=== PATIENT | male | born 1975 | race Caucasian/White ===

== ENCOUNTER → 2019-05-21 | Outpatient (CLI) | payer OTHER ==
[2019-05-21 10:07] LABS: HEMATOCRIT 40.9 % (37.9-51.0); HEMOGLOBIN 14.3 g/dL (13.5-17.0); MEAN CORPUSCULAR HEMOGLOBIN 32.4 pg (27.0-33.4); MEAN CORPUSCULAR VOLUME 93 fl (80-97); PLATELET COUNT 332 10^3/uL (150-450); RED BLOOD COUNT 4.42 10^6/uL (4.35-5.55); RED CELL DISTRIBUTION WIDTH 15.2 % (11.5-14.0); WHITE BLOOD COUNT 7.4 10^3/uL (4.0-10.5)
[2019-05-21 10:34] LABS: ALBUMIN 4.7 g/dL (3.5-5.0); ALKALINE PHOSPHATASE 60 U/L (38-126); ANION GAP 10 (5-19); ASPARTATE AMINO TRANSFERASE 27 U/L (17-59); BILIRUBIN,DIRECT 0.2 mg/dL (0.0-0.4); BILIRUBIN,TOTAL 0.4 mg/dL (0.2-1.3); BLOOD UREA NITROGEN 11 mg/dL (7-20); CALCIUM 9.4 mg/dL (8.4-10.2); CARBON DIOXIDE 28 mmol/L (22-30); CHLORIDE 102 mmol/L (98-107); GLUCOSE 94 mg/dL (75-110); POTASSIUM 4.8 mmol/L (3.6-5.0); TOTAL PROTEIN 7.8 g/dL (6.3-8.2)
[2019-05-21 10:38] LABS: C-REACTIVE PROTEIN < 5.0 mg/L (<10.0)
[2019-05-21 10:51] LABS: ERYTHROCYTE SEDIMENTATION RATE 14 mm/hr (0-15)
== END ==
LOC: OD 09:37
PROVIDERS: ATTEND Orthopaedic Surgery
DX: T84.59XA Infection and inflammatory reaction due to other internal joint prosthesis, initial encounter (principal)
CPT/HCPCS: 36415; 80053; 85027; 85652; 86140

== ENCOUNTER 2019-12-06 19:05 | Emergency (ER) | payer OTHER ==
--- NOTE | 2019-12-06 19:24 | ER Document Report ---
ED Medical Screen (RME) - General Chief Complaint: Knee Pain Stated Complaint: KNEE INJURY Primary Care Provider: MELIA CHAPMAN MD [Primary Care Provider] - Follow up as needed Notes: Patient is a 44-year-old white male with a past medical history of total knee arthroplasty on the right back in 2014 with subsequent effusions that have been tapped and showed infection in the past who presents today with a chief complaint of right knee pain and swelling for the past few days. He states he also has a history of lupus. Had his gallbladder removed in 2018. Denies any fall, blunt injury or trauma. States the pain is exquisite. Denies any redness or increased warmth. Denies fever, nausea vomiting, diarrhea. Admits to some chills. I have treated and performed a rapid initial assessment of this patient. A comprehensive ED assessment and evaluation of the patient, analysis of test results and completion of medical decision making process will be conducted by additional ED providers. PHYSICAL EXAMINATION: GENERAL: Well-appearing, well-nourished and in no acute distress. A&Ox4. Answers questions appropriately. TRAVEL OUTSIDE OF THE [place] IN LAST 30 DAYS: No - Related Data Allergies/Adverse Reactions: venom-honey bee Allergy (Verified 12/06/19 19:15) Past Medical History - Social History Chew tobacco use (# tins/day): No Frequency of alcohol use: Occasional Drug Abuse: None Physical Exam - Vital signs Vitals: Temp Pulse Resp BP Pulse Ox 98.7 F 97 16 118/71 100 12/06/19 19:12 12/06/19 19:12 12/06/19 19:12 12/06/19 19:12 12/06/19 19:12 Course - Vital Signs Vital signs: Temp Pulse Resp BP Pulse Ox 98.7 F 97 16 118/71 100 12/06/19 19:12 12/06/19 19:12 12/06/19 19:12 12/06/19 19:12 12/06/19 19:12 Doctor's Discharge - Discharge Referrals: MELIA CHAPMAN MD [Primary Care Provider] - Follow up as needed
[2019-12-06 20:10] LABS: ABSOLUTE EOSINOPHILS # (AUTO) 0.1 10^3/uL (0.0-0.6); ABSOLUTE LYMPHOCYTES (AUTO) 1.9 10^3/uL (0.5-4.7); ABSOLUTE MONOCYTES (AUTO) 0.6 10^3/uL (0.1-1.4); ABSOLUTE NEUT (AUTO) 3.2 10^3/uL (1.7-8.2); BASOPHILS % (AUTO) 0.8 % (0-2); EOSINOPHILS % (AUTO) 1.8 % (0-6); HEMATOCRIT 33.5 % (37.9-51.0); HEMOGLOBIN 11.6 g/dL (13.5-17.0); LYMPHOCYTES % (AUTO) 32.9 % (13-45); MEAN CORPUSCULAR HEMOGLOBIN 32.7 pg (27.0-33.4); MEAN CORPUSCULAR HGB CONC 34.6 g/dL (32.0-36.0); MEAN CORPUSCULAR VOLUME 95 fl (80-97); MONOCYTES % (AUTO) 10.2 % (3-13); PLATELET COUNT 357 10^3/uL (150-450); RED BLOOD COUNT 3.54 10^6/uL (4.35-5.55); RED CELL DISTRIBUTION WIDTH 14.4 % (11.5-14.0); SEGMENTED NEUTROPHILS % (AUTO) 54.3 % (42-78); TOTAL CELLS COUNTED % (AUTO) 100 %; WHITE BLOOD COUNT 5.9 10^3/uL (4.0-10.5)
[2019-12-06 20:17] LABS: ALBUMIN 4.3 g/dL (3.5-5.0); ALKALINE PHOSPHATASE 121 U/L (38-126); ANION GAP 7 (5-19); ASPARTATE AMINO TRANSFERASE 37 U/L (17-59); BILIRUBIN,TOTAL 0.8 mg/dL (0.2-1.3); BLOOD UREA NITROGEN 15 mg/dL (7-20); CALCIUM 9.2 mg/dL (8.4-10.2); CARBON DIOXIDE 28 mmol/L (22-30); CHLORIDE 104 mmol/L (98-107); GLUCOSE 99 mg/dL (75-110); POTASSIUM 4.3 mmol/L (3.6-5.0); TOTAL PROTEIN 8.3 g/dL (6.3-8.2)
[2019-12-06] MEDS ORDERED: OXYCODONE-ACETAMINOPHEN 5-325 MG TABLET PO ONE (20:17)
[2019-12-06] MEDS ORDERED: PROMETHAZINE HCL 25 MG TABLET PO ONE (20:17)
--- NOTE | 2019-12-06 20:20 | ER Document Report ---
ED Extremity Problem, Lower - General Chief Complaint: Knee Pain Stated Complaint: KNEE INJURY Time Seen by Provider: 12/06/19 20:06 Primary Care Provider: OMID PEACE MD [ACTIVE PROVISIONAL STAFF] - Follow up tomorrow HIRA ROJAS MD [ACTIVE STAFF] - Follow up tomorrow Notes: Patient is a 44-year-old male that comes to the emergency department for chief complaint of sharp pain and significant swelling to the right knee. He states this significantly started yesterday and worsened today. Patient has difficulty walking on the leg or bending the knee. 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 Past medical history also includes hyperlipidemia, hypothyroidism, cholecystectomy. He denies IV drug abuse, he is on diclofenac for his knee. He states he was also recently told he could have lupus. He is not on any medications for this. He denies any recent injury to the knee. TRAVEL OUTSIDE OF THE [place] IN LAST 30 DAYS: No - Related Data Allergies/Adverse Reactions: venom-honey bee Allergy (Verified 12/06/19 19:15) Past Medical History - General Information source: Patient - Social History Smoking Status: Never Smoker Chew tobacco use (# tins/day): No Frequency of alcohol use: Occasional Drug Abuse: None Lives with: Family Family History: Reviewed & Not Pertinent Patient has suicidal ideation: No Patient has homicidal ideation: No Past Surgical History: Reports: Hx Cholecystectomy, Hx Orthopedic Surgery - right knee replacement 2014 - Immunizations Immunizations up to date: Yes Hx Diphtheria, Pertussis, Tetanus Vaccination: Yes Review of Systems - Review of Systems Constitutional: No symptoms reported EENT: No symptoms reported Cardiovascular: No symptoms reported Respiratory: No symptoms reported Gastrointestinal: No symptoms reported Genitourinary: No symptoms reported Male Genitourinary: No symptoms reported Musculoskeletal: See HPI Skin: No symptoms reported Hematologic/Lymphatic: No symptoms reported Neurological/Psychological: No symptoms reported Physical Exam - Vital signs Vitals: Temp Pulse Resp BP Pulse Ox 98.7 F 97 16 118/71 100 12/06/19 19:12 12/06/19 19:12 12/06/19 19:12 12/06/19 19:12 12/06/19 19:12 - Notes Notes: GENERAL: Patient appears to be in pain, holding his right knee with both hands HEAD: Normocephalic, atraumatic. EYES: Pupils equal, round, and reactive to light. Extraocular movements intact. ENT: Oral mucosa moist, tongue midline. Oropharynx unremarkable. Airway patent. NECK: Full range of motion. Supple. Trachea midline. No lymphadenopathy. LUNGS: Clear to auscultation bilaterally, no wheezes, rales, or rhonchi. No respiratory distress. Non-tender chest wall. HEART: Regular rate and rhythm. No murmur ABDOMEN: Soft, non-tender. Non-distended. EXTREMITIES: Patient is able to move the right knee in flexion and extension but with pain. There is significant swelling over the knee itself, there is mild warmth but there is no erythema, there is some generalized tenderness but no severe particular area of tenderness with palpation. Normal thigh, ankle, foot exam, normal distal neurovascular exam. Unremarkable extremities otherwise. BACK: no cervical, thoracic, lumbar midline tenderness. No saddle anesthesia, normal distal neurovascular exam. Moves all extremities in full range of motion. NEUROLOGICAL: Alert and oriented x3. Normal speech. Cranial nerves II through XII grossly intact. Strength 5/5 in all extremities. PSYCH: Normal affect, normal mood. SKIN: Warm, dry, normal turgor. No rashes or lesions noted. Course - Re-evaluation Re-evalutation: Patient does have a very swollen right knee compared to the left, however he is able to straighten and bend this with effort. Swelling is sudden in onset since yesterday without injury. He has no fever, CBC and chemistry unremarkable. CRP and ESR are somewhat elevated however, x-ray obtained and shows hardware but no effusion or acute findings. Discussed with Dr. Guzman, he recommends Orthopedic consultation before attempting possible arthrocentesis because patient has had previous total knee replacement and also an infection. Discussed with Dr. Peace, orthopedics on-call. Discussed presentation, exam, history. He states if desired we can perform arthrocentesis but he does not recommend this particularly, he states at this time he does not feel patient is septic from this and patient will need immediate follow-up tomorrow with orthopedics but no additional recommendation at this time, patient can be discharged for the follow-up. I did discuss this with patient. Initially patient was hoping for arthrocentesis but after I discussed all details, work-up, options patient states that he will call orthopedics referral tomorrow for follow-up with the [facility] instead. He was provided with crutches. He was provided with pain management. Patient was asymptomatic after pain medications here. Vital signs rechecked and unremarkable. Discussed return precautions including inability to move the knee, spiking fever, developing redness, or any other concerning or worsening symptoms. Patient states appreciation and agreement. Stable and well-appearing at time of discharge. - Vital Signs Vital signs: Temp Pulse Resp BP Pulse Ox 98.6 F 78 17 115/80 100 12/06/19 23:53 12/06/19 23:53 12/06/19 23:53 12/06/19 23:53 12/06/19 23:53 - Laboratory Result Diagrams: 12/06/19 19:40 12/06/19 19:40 Laboratory results interpreted by me: 12/06/19 12/06/19 12/06/19 19:40 19:40 19:40 RBC 3.54 L Hgb 11.6 L Hct 33.5 L RDW 14.4 H ESR 71 H C-Reactive Protein Total Protein 8.3 H 12/06/19 19:40 RBC Hgb Hct RDW ESR C-Reactive Protein 18.9 H Total Protein Discharge - Discharge Clinical Impression: Swelling of right knee joint Right knee pain Qualifiers: Chronicity: acute Qualified Code(s): M25.561 - Pain in right knee Condition: Stable Disposition: HOME, SELF-CARE Additional Instructions: There is no effusion (fluid in the joint) seen on the x-ray. However your labs and history are concerning. I spoke with Dr. Peace, orthopedic surgeon rahat. Please see orthopedics tomorrow either with the [facility] or with the referral listed. Use the crutches. Take the pain medication if needed. Return if you worsen including developing a fever, developing redness or spreading redness, inability to move your knee, or any other concerning symptoms. Prescriptions: Oxycodone HCl/Acetaminophen [Percocet 5-325 mg Tablet] 1 - 2 tab PO TID PRN #15 tablet PRN Reason: Ondansetron [Zofran Odt 4 mg Tablet] 1 - 2 tab PO Q4H PRN #15 tab.rapdis PRN Reason: For Nausea/Vomiting Referrals: HIRA ROJAS MD [ACTIVE STAFF] - Follow up tomorrow OMID PEACE MD [ACTIVE PROVISIONAL STAFF] - Follow up tomorrow
--- NOTE | 2019-12-06 20:28 | RADIOLOGY REPORT (SQ) ---
EXAM DESCRIPTION: XR KNEE 4 OR MORE VIEWS COMPLETED DATE/TME: 12/06/2019 19:22 CLINICAL HISTORY: 44 years Male knee pain COMPARISON: None. TECHNIQUE: Right knee, four views FINDINGS: Total knee arthroplasty. No acute fractures or dislocations are identified. No osseous destructive lesions. No joint effusion is noted. IMPRESSION: No acute fracture is identified.
[2019-12-06] MEDS ORDERED: LIDOCAINE 1% INJ (10 MG/ML) 10 ML MDV INJ ONE (22:06)
[2019-12-06 23:55] VITALS: BP 115/80
== END 2019-12-06 23:53 | disposition home or self-care (01) ==
LOC: ER 19:05
DX: R22.41 Localized swelling, mass and lump, right lower limb (principal); M25.561 Pain in right knee; Z96.651 Presence of right artificial knee joint; Z90.49 Acquired absence of other specified parts of digestive tract
CPT/HCPCS: 36415; 80053; 85025; 85652; 86140; 99283

== ENCOUNTER 2019-12-14 09:09 | Inpatient (IN) | payer OTHER ==
[~2019-12-14 09:09] MED LIST: CEFAZOLIN SODIUM 2 GM in DEXTROSE 5%-WATER 100 ML IV PRN
[2019-12-14] MEDS ORDERED: CEFAZOLIN 1 GM/D5W RTU 1 GM/50 ML RTUPB IV ONE (09:13)
[2019-12-14] MEDS ORDERED: CEFAZOLIN INJ 1 GM VIAL ONE (09:13)
[2019-12-14] MEDS ORDERED: PROPOFOL INJ 200 MG/20 ML VIAL IV ONE ×2 (09:26→16:32)
[2019-12-14] MEDS ORDERED: ONDANSETRON HCL INJ/PF 4 MG/2 ML SDV ONE ×2 (09:26→15:46)
[2019-12-14] MEDS ORDERED: FENTANYL CITRATE INJ/PF 100 MCG/2 ML AMPUL ONE (09:26)
[2019-12-14] MEDS ORDERED: LIDOCAINE 2% INJ-PF (20 MG/ML) 10 ML AMPUL ONE (09:26)
[2019-12-14] MEDS ORDERED: MIDAZOLAM 2 MG/2 ML INJ ONE ×2 (09:26→13:28)
[2019-12-14] MEDS ORDERED: EPINEPHRINE INJ/PF 1 MG/1 ML AMPULE ONE (09:28)
[2019-12-14] MEDS ORDERED: THROMBIN (BOVINE) TOPICAL 20000 UNIT VIAL ONE (12:06)
[2019-12-14] MEDS ORDERED: THROMBIN (BOVINE) TOPICAL 5000 UNIT VIAL ONE (12:06)
[2019-12-14] MEDS ORDERED: BUPIVACAINE HCL 0.5%-EPI 1:200000 INJ/PF 30 ML VIAL ONE (12:07)
[2019-12-14] MEDS ORDERED: VANCOMYCIN HCL INJ 1000 MG VIAL ONE ×2 (12:10→12:21)
[2019-12-14] MEDS ORDERED: BACITRACIN INJ 50,000 UNIT VIAL ONE (12:11)
[2019-12-14] MEDS ORDERED: BUPIVACAINE INJ/PF LIPOSOME/PF 266 MG/20 ML SDV ONE (12:11)
[2019-12-14] MEDS ORDERED: DIPHENHYDRAMINE HCL 50 MG/ML VIAL IV PRN ×2 (12:55→14:09)
[2019-12-14] MEDS ORDERED: ONDANSETRON HCL INJ/PF 4 MG/2 ML SDV IV PRN ×2 (12:55→14:09)
[2019-12-14] MEDS ORDERED: FENTANYL CITRATE INJ/PF 100 MCG/2 ML AMPUL IV PRN ×3 (12:55)
[2019-12-14] MEDS ORDERED: PROMETHAZINE HCL INJ 25 MG/1 ML VIAL IV PRN ×2 (12:55)
[2019-12-14] MEDS ORDERED: TRANEXAMIC ACID INJ/PF 1,000 MG/10 ML SDV ONE ×2 (13:50→16:08)
--- NOTE | 2019-12-14 14:08 | Operative Report ---
Operative Report DATE OF SURGERY: 12/14/19 PREOPERATIVE DIAGNOSIS: Right knee periprosthetic infection OPERATION: Resection arthroplasty and implantation of a cement spacer SURGEON: HIRA ROJAS ANESTHESIA: Spinal TISSUE REMOVED OR ALTERED: Swab cultures, tissue cultures, fluid cultures were all sent. Additionally tissue was sent to pathology for permanent analysis ESTIMATED BLOOD LOSS: 75 PROCEDURE: With the patient supine on the operating table the right lower extremities prepped and draped in a sterile fashion. The limb is elevated for exsanguination tourniquet inflated 280 torr. A standard midline median parapatellar approach knee is taken. Upon penetrating the knee capsule there is a large amount of milky appearing fluid that is present. This is aspirated with syringe and sent for culture. Likewise swabs are taken and sent for culture. Viv tissue was taken and sent for culture. First the rotating platform for [place] attune posterior stabilized rotating platform knee is removed piecemeal using a saw. Next a TPS saw was used around the femoral implant minimal bone loss. Lastly the tibial component is removed with minimal bone loss. Any residual cement in the femur the tibia is removed using a combination of osteotomes, curettes, and rongeurs. Lastly the patella component is removed using oscillating saw and the pegs were removed using a combination of a drill and a curette. The wound bed is irrigated with pulse lavage using 3 L of normal saline containing bacitracin followed by 3 L of normal saline. A Jeny [id number] cement spacer attaining gentamicin is placed into the knee and cemented place using polymethylmethacrylate containing vancomycin and tobramycin. The tourniquet is deflated. Hemostasis obtained with electrocautery. The wound is closed in layers using DS followed by ap. A sterile compressive dressing and knee immobilizer applied and the patient is returned to the PACU in satisfactory condition.
[2019-12-14] MEDS ORDERED: MAG HYDROX/AL HYDROX/SIMETH SUSP 30 ML UDCUP PO PRN (14:09)
[2019-12-14] MEDS ORDERED: OXYCODONE HCL IR 5 MG TABLET PO PRN (14:09)
[2019-12-14] MEDS ORDERED: MORPHINE SULFATE 10 MG/ML INJ IV PRN ×3 (14:09)
[2019-12-14] MEDS ORDERED: RINGERS SOLUTION,LACTATED 1,000 ML IV PRN (14:09)
[2019-12-14] MEDS ORDERED: ZOLPIDEM TARTRATE 5 MG TABLET PO PRN (14:09)
[2019-12-14] MEDS ORDERED: BUPIVACAINE HCL 0.25 % INJ/PF (2.5 MG/1 ML) 30 ML VIAL ONE ×2 (14:38→15:13)
--- NOTE | 2019-12-14 15:21 | RADIOLOGY REPORT (SQ) ---
EXAM DESCRIPTION: KNEE RIGHT 2 VIEWS IMAGES COMPLETED DATE/TIME: 12/14/2019 3:12 pm REASON FOR STUDY: POST OP T84.59XA INFECT/INFLM REACTION DUE TO OTH INTERNAL JOINT PRO COMPARISON: None. NUMBER OF VIEWS: Four views. TECHNIQUE: AP, lateral, and both oblique radiographic images acquired of the right knee. LIMITATIONS: None. FINDINGS: MINERALIZATION: Normal. BONES: Status post revision of a TKA. The subcutaneous and intra-articular emphysema is expected in the immediate postoperative period. There is no periprosthetic fracture. JOINT: As above. SOFT TISSUES: As above. OTHER: No other finding. IMPRESSION: Status post revision of a TKA with expected immediate postoperative findings. There is no periprosthetic fracture. TECHNICAL DOCUMENTATION: JOB ID: [id number] 2010 [employer]- All Rights Reserved Reading location - IP/workstation name: [email or web address]
[2019-12-14] MEDS ORDERED: KETAMINE HCL INJ 500 MG/10 ML VIAL ONE (15:34)
[2019-12-14] MEDS ORDERED: MAGNESIUM SULFATE/D5W 1 GM/100 ML RTUPB IV ONE (15:35)
[2019-12-14] MEDS: MORPHINE SULFATE 10 MG/ML INJ IV PRN (17:12)
[2019-12-14] MEDS: PREGABALIN 75 MG CAPSULE PO SCH (17:51)
[2019-12-14] MEDS: SENNOSIDES/DOCUSATE 8.6-50 MG 1 EACH TABLET PO SCH (17:51)
[2019-12-14] MEDS: ONDANSETRON 4 MG TAB.RAPDIS PO PRN (17:51)
[2019-12-14] MEDS ORDERED: CEFTRIAXONE 2 GM/D5W RTU 2 GM/50 ML RTUPB IV SCH (19:00)
[2019-12-14] MEDS ORDERED: CEFTRIAXONE SODIUM 2,000 MG in DEXTROSE 5%-WATER 100 ML IV SCH (19:00)
[2019-12-14] MEDS ORDERED: ACETAMINOPHEN 1,000 MG/100 ML RTUPB IV ONE (20:09)
[2019-12-14] MEDS: ATORVASTATIN CALCIUM 40 MG TABLET PO SCH (22:21)
[2019-12-14] MEDS: OXYCODONE HCL SR 10 MG TABLET PO SCH (22:22)
[2019-12-14] MEDS ORDERED: CEFTRIAXONE 2 GM/D5W RTU 2 GM/50 ML RTUPB IV ONE (23:49)
[2019-12-15] MEDS ORDERED: VANCOMYCIN HCL 1,000 MG in DEXTROSE 5%-WATER 250 ML IV ONE (02:09)
[2019-12-15] MEDS: PANTOPRAZOLE SODIUM 40 MG TABLET.DR PO SCH (05:13)
[2019-12-15 05:50] LABS: HEMATOCRIT 33.6 % (37.9-51.0); HEMOGLOBIN 11.9 g/dL (13.5-17.0); MEAN CORPUSCULAR HGB CONC 35.4 g/dL (32.0-36.0); MEAN CORPUSCULAR VOLUME 93 fl (80-97); PLATELET COUNT 303 10^3/uL (150-450); RED CELL DISTRIBUTION WIDTH 13.9 % (11.5-14.0); WHITE BLOOD COUNT 6.1 10^3/uL (4.0-10.5)
[2019-12-15 06:05] LABS: ANION GAP 10 (5-19); BLOOD UREA NITROGEN 13 mg/dL (7-20); CARBON DIOXIDE 30 mmol/L (22-30); CHLORIDE 95 mmol/L (98-107); GLUCOSE 108 mg/dL (75-110); POTASSIUM 4.5 mmol/L (3.6-5.0)
--- NOTE | 2019-12-15 07:11 | PDOC DISCHARGE SUMMARY ---
Impression - Admit/DC Date/PCP Admission Date/Primary Care Provider: 12/14/19 09:09 FAN BHATIA MD Discharge Date: 12/15/19 - Discharge Diagnosis (1) Infected prosthetic knee joint Is this a current diagnosis for this admission?: Yes - Additional Information Resuscitation Status: Full Code Discharge Diet: As Tolerated, Regular Discharge Activity: Balance Activity w/Rest, No tub bath Referrals: FAN BHATIA MD [Primary Care Provider] - Home Medications: Cholecalciferol (Vitamin D3) [Vitamin D3 1000 Unit Tablet] 2,000 unit PO DAILY 12/09/19 Etodolac 300 mg PO DAILYP PRN 12/09/19 Ferrous Sulfate [Ferosul] 325 mg PO DAILY 12/09/19 Levothyroxine Sodium [Levo-T] 150 mcg PO DAILY 12/09/19 Loratadine [Claritin] 10 mg PO DAILY 12/09/19 Multivitamin 1 each PO DAILY 12/09/19 [place]-3/Dha/Epa/Fish Oil [Fish Oil 1,000 mg Softgel] 1 each PO DAILY 12/09/19 Atorvastatin Calcium [Lipitor 40 mg Tablet] 40 mg PO QHS 12/14/19 Diclofenac Sodium 4 gm TP QIDP PRN 12/14/19 History of Present Illiness History of Present Illness: CHERY PALOMO is a 44 year old male Patient is a 44-year-old white male status post right knee arthroplasty in 2014 in [facility] with ongoing pain, effusion, and functional disability. Patient has had elevated inflammatory parameters including sedimentation rate and C-reactive protein. 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 Is admitted for a first of a two-stage reconstruction Hospital Course Hospital Course: Patient is admitted through the operating where he undergoes a resection arthroplasty which was uncomplicated. At the time of discharge pain is well controlled. He is yet to be seen by physical therapy or social work. He will be started on empiric antibiotics including Rocephin and vancomycin. PICC line will be placed and then the patient is ready for discharge home. Physical Exam Vital Signs: Temp Pulse Resp BP Pulse Ox 36.9 C 88 18 98/60 L 99 12/14/19 23:55 12/14/19 23:55 12/14/19 23:55 12/14/19 23:55 12/14/19 23:55 Intake & Output 12/14/19 12/15/19 12/16/19 06:59 06:59 06:59 Intake Total 8979 Output Total 6929 Balance 2049 Weight 90.3 kg General appearance: PRESENT: no acute distress, mild distress Head exam: PRESENT: normocephalic Respiratory exam: PRESENT: unlabored Cardiovascular exam: PRESENT: RRR Pulses: PRESENT: +1 pedal pulses bilateral GI/Abdominal exam: PRESENT: soft Rectal exam: PRESENT: deferred Musculoskeletal exam: PRESENT: other - Right lower extremity dressing, knee immobilizer both intact. Distal neurovascular examination is intact. Neurological exam: PRESENT: alert, awake, oriented to person, oriented to place, oriented to time, oriented to situation. ABSENT: motor sensory deficit Psychiatric exam: PRESENT: appropriate affect, normal mood. ABSENT: homicidal ideation, suicidal ideation Skin exam: PRESENT: dry, intact, warm. ABSENT: cyanosis, rash Results Laboratory Results: WBC 6.1 10^3/uL (4.0-10.5) 12/15/19 05:14 RBC 3.60 10^6/uL (4.35-5.55) L 12/15/19 05:14 Hgb 11.9 g/dL (13.5-17.0) L 12/15/19 05:14 Hct 33.6 % (37.9-51.0) L 12/15/19 05:14 MCV 93 fl (80-97) 12/15/19 05:14 MCH 33.0 pg (27.0-33.4) 12/15/19 05:14 MCHC 35.4 g/dL (32.0-36.0) 12/15/19 05:14 RDW 13.9 % (11.5-14.0) 12/15/19 05:14 Plt Count 303 10^3/uL (150-450) 12/15/19 05:14 Sodium 134.9 mmol/L (137-145) L 12/15/19 05:14 Potassium 4.5 mmol/L (3.6-5.0) 12/15/19 05:14 Chloride 95 mmol/L (98-107) L 12/15/19 05:14 Carbon Dioxide 30 mmol/L (22-30) 12/15/19 05:14 Anion Gap 10 (5-19) 12/15/19 05:14 BUN 13 mg/dL (7-20) 12/15/19 05:14 Creatinine 0.86 mg/dL (0.52-1.25) 12/15/19 05:14 Est GFR ( Amer) > 60 (>60) 12/15/19 05:14 Est GFR (MDRD) Non-Af > 60 (>60) 12/15/19 05:14 Glucose 108 mg/dL (75-110) 12/15/19 05:14 Calcium 9.0 mg/dL (8.4-10.2) 12/15/19 05:14 Impressions: Knee X-Ray 12/14/19 14:55 IMPRESSION: Status post revision of a TKA with expected immediate postoperative findings. There is no periprosthetic fracture. Plan Plan of Treatment: Patient be discharged home on a touchdown weightbearing restriction on the right lower extremity with home health services and DME. Patient will require 6 weeks of IV Rocephin and vancomycin. Stroke Is this a Stroke Patient?: No Stroke Pt being discharged on Anti-thrombolytic therapy?: Yes Acute Heart Failure - Is this a Heart Failure Patient?: No
[2019-12-15] MEDS: MORPHINE SULFATE 10 MG/ML INJ IV PRN (07:30)
[2019-12-15] MEDS: ACETAMINOPHEN 325 MG TABLET PO PRN ×2 (07:30→18:08)
[2019-12-15] MEDS: OXYCODONE HCL SR 10 MG TABLET PO SCH (10:09)
[2019-12-15] MEDS: FERROUS SULFATE 325 MG TABLET PO SCH (10:13)
[2019-12-15] MEDS: ASPIRIN 81 MG TABLET, ENT COATED PO SCH (10:13)
[2019-12-15] MEDS: PRENATAL VITAMIN W DHA CAPSULE PO SCH (10:13)
[2019-12-15] MEDS: PREGABALIN 75 MG CAPSULE PO SCH ×2 (10:13→17:02)
[2019-12-15] MEDS: SENNOSIDES/DOCUSATE 8.6-50 MG 1 EACH TABLET PO SCH ×2 (10:13→17:02)
[2019-12-15] MEDS: VANCOMYCIN HCL 1,000 MG in DEXTROSE 5%-WATER 250 ML IV SCH ×2 (10:13→17:49)
[2019-12-15] MEDS: CHOLECALCIFEROL (D3) 1,000 UNIT (25 MCG) TABLET PO SCH (10:13)
[2019-12-15] MEDS: LEVOTHYROXINE SODIUM 0.15 MG TABLET PO SCH (10:15)
[2019-12-15] MEDS ORDERED: NORMAL SALINE 1000 ML 1,000 ML IV ONE (11:30)
--- NOTE | 2019-12-15 14:19 | RADIOLOGY REPORT (SQ) ---
EXAM DESCRIPTION: PICC INSERTION IMAGES COMPLETED DATE/TIME: 12/15/2019 1:56 pm REASON FOR STUDY: HOME IV ABX T84.59XA INFECT/INFLM REACTION DUE TO OTH INTERNAL JOINT PRO COMPARISON: None. FLUOROSCOPY TIME: 22 seconds 2 images saved to PACS. TECHNIQUE: Fluoroscopic and ultrasound guided PICC placement. LIMITATIONS: None. PROCEDURE: After written consent and assessment were obtained, the patient was brought into the fluo roscopy room and placed supine on the table. Ultrasound evaluation of potential access sites were per formed. After successfully identifying a patent left basilic vein, the left arm was prepped and drape d in a sterile fashion along with the ultrasound probe. The entry site was anesthetized with 1% lidoc kobe. A 21 gauge 7 cm needle was advanced through the skin and into the basilic vein under live ultra sound guidance. An ultrasound image was saved to PACS confirming access site. A .018 guide wire was then inserted through the needle and into the venous system. The needle was then removed and an 11 b lade scalpel was used to make a 1cm skin incision. A 5 fr peel-away sheath was advanced over the wir e and into the venous system. A measurement was then made using the existing wire and live fluoroscop ic guidance. The wire was then removed and trimmed. The PICC was advanced through the peel-away sheat h and into the venous system. The peel-away sheath was removed and the catheter was adhered to the pa tients arm with a stat lock. The catheter was then aspirated and flushed and a sterile bandage was pl aced over the access site. A fluoroscopic spot image was saved to PACS confirming the catheter tip w ithin the superior vena cava. IMPRESSION: SUCCESSFUL PLACEMENT OF A 5 FR DUAL LUMEN 45 CM PICC IN THE LEFT BASILIC VEIN. COMMENT: Patient medication list reviewed: Yes- Quality ID# [id number]:Eligible professional attests to doc umenting in the medical record they obtained, updated, or reviewed the patient's current medications. . Quality ID 145: Final reports for procedures using fluoroscopy that document radiation exposure davis stephy, or exposure time and number of fluorographic images (if radiation exposure indices are not avail able) Quality ID #76: The patient was prepped and draped using maximum sterile barrier technique including cap, mask, sterile gown, sterile gloves, a large sterile sheet, hand hygiene, and 2% Chlorhexidine fo r cutaneous antisepsis. When ultrasound is used, sterile ultrasound techniques are followed requiring sterile gel and sterile probes. TECHNICAL DOCUMENTATION: JOB ID: [id number] 2010 [employer]- All Rights Reserved rev-01/03 Reading location - IP/workstation name: [email or web address]
[2019-12-15] MEDS: HYDROCODONE/ACETAMINOPHEN 5-325 MG TABLET PO PRN ×2 (15:30→22:06)
[2019-12-15] MEDS ORDERED: NORMAL SALINE 10 ML SDV (AFTER EACH USE) IV PRN (15:30)
[2019-12-15] MEDS: ONDANSETRON 4 MG TAB.RAPDIS PO PRN ×2 (15:30→22:06)
[2019-12-15] MEDS: CEFTRIAXONE 2 GM/D5W RTU 2 GM/50 ML RTUPB IV SCH (17:02)
[2019-12-15] MEDS: NORMAL SALINE 10 ML SDV (SCHEDULED) IV SCH (22:07)
[2019-12-15] MEDS: ATORVASTATIN CALCIUM 40 MG TABLET PO SCH (22:07)
[2019-12-16] MEDS: ACETAMINOPHEN 325 MG TABLET PO PRN ×2 (01:18→22:14)
[2019-12-16] MEDS: VANCOMYCIN HCL 1,000 MG in DEXTROSE 5%-WATER 250 ML IV SCH ×2 (01:18→10:42)
[2019-12-16] MEDS: HYDROCODONE/ACETAMINOPHEN 5-325 MG TABLET PO PRN ×3 (05:16→19:42)
[2019-12-16] MEDS: PANTOPRAZOLE SODIUM 40 MG TABLET.DR PO SCH (05:16)
[2019-12-16] MEDS: ONDANSETRON 4 MG TAB.RAPDIS PO PRN ×2 (05:16→12:46)
[2019-12-16 05:40] LABS: HEMATOCRIT 30.9 % (37.9-51.0); MEAN CORPUSCULAR HGB CONC 35.5 g/dL (32.0-36.0); MEAN CORPUSCULAR VOLUME 93 fl (80-97); PLATELET COUNT 300 10^3/uL (150-450); RED BLOOD COUNT 3.34 10^6/uL (4.35-5.55); RED CELL DISTRIBUTION WIDTH 14.2 % (11.5-14.0); WHITE BLOOD COUNT 9.5 10^3/uL (4.0-10.5)
[2019-12-16] MEDS: PRENATAL VITAMIN W DHA CAPSULE PO SCH (10:36)
[2019-12-16] MEDS: SENNOSIDES/DOCUSATE 8.6-50 MG 1 EACH TABLET PO SCH ×2 (10:36→18:10)
[2019-12-16] MEDS: ASPIRIN 81 MG TABLET, ENT COATED PO SCH (10:36)
[2019-12-16] MEDS: FERROUS SULFATE 325 MG TABLET PO SCH (10:36)
[2019-12-16] MEDS: CHOLECALCIFEROL (D3) 1,000 UNIT (25 MCG) TABLET PO SCH (10:36)
[2019-12-16] MEDS: PREGABALIN 75 MG CAPSULE PO SCH ×2 (10:36→18:10)
[2019-12-16] MEDS: NORMAL SALINE 10 ML SDV (SCHEDULED) IV SCH ×2 (10:37→22:09)
[2019-12-16] MEDS: LEVOTHYROXINE SODIUM 0.15 MG TABLET PO SCH (10:42)
[2019-12-16 11:18] LABS: VANCOMYCIN,TROUGH < 5.0 ug/mL (5.0-20.0)
[2019-12-16] MEDS ORDERED: VANCOMYCIN HCL 500 MG in DEXTROSE 5%-WATER 100 ML IV ONE (12:30)
--- NOTE | 2019-12-16 16:03 | Progress Note ---
Provider Note Provider Note: [facility] ID Telephone Advice Consultation Chart reviewed. Patient is a 44-year-old man with questionable history of SLE who had a right knee arthroplasty in 2014 in [place]. He was complaining of pain, effusion, and difficulty walking. His baseline inflammation markers were elevated with ESR 71 and CRP 18. On 12/07 he had aspiration of the joint. WBC was 206 with 58% PMN and 31% Lymp, RBC 18,000. Synovial fluid culture was negative. He was taken to the OR for the first of a 2-stage revision. Fluid was turbid, but culture has been negative. ID consulted for antibiotic recommendations. PMH: SLE? Hypothyroidism PSH: Right TKA 2014 Allergies venom-honey bee Allergy (Verified 12/06/19 19:15) hydrocodone Adverse Reaction (Verified 12/09/19 11:18) oxycodone Adverse Reaction (Verified 12/09/19 11:18) Medications: Cholecalciferol (Vitamin D3) [Vitamin D3 1000 Unit Tablet] 2,000 unit PO DAILY 12/09/19 Etodolac 300 mg PO DAILYP PRN 12/09/19 Ferrous Sulfate [Ferosul] 325 mg PO DAILY 12/09/19 Levothyroxine Sodium [Levo-T] 150 mcg PO DAILY 12/09/19 Loratadine [Claritin] 10 mg PO DAILY 12/09/19 Multivitamin 1 each PO DAILY 12/09/19 [place]-3/Dha/Epa/Fish Oil [Fish Oil 1,000 mg Softgel] 1 each PO DAILY 12/09/19 Atorvastatin Calcium [Lipitor 40 mg Tablet] 40 mg PO QHS 12/14/19 Diclofenac Sodium 4 gm TP QIDP PRN 12/14/19 Vital Signs: Temp Pulse Resp BP Pulse Ox 97.9 F 95 18 116/62 96 12/16/19 12:03 12/16/19 12:03 12/16/19 12:03 12/16/19 12:03 12/16/19 12:03 Intake & Output 12/15/19 12/16/19 12/17/19 06:59 06:59 06:59 Intake Total 8966 2440 250 Output Total 4427 7615 Balance 2049 - 250 Weight 90.3 kg 90.3 kg Weight/Height Weight 90.3 kg Height 5 ft 11 in Laboratories: 12/16/19 05:15 12/16/19 10:15 MCV 93 fl (80-97) 12/16/19 05:15 MCH 33.0 pg (27.0-33.4) 12/16/19 05:15 MCHC 35.5 g/dL (32.0-36.0) 12/16/19 05:15 RDW 14.2 % (11.5-14.0) H 12/16/19 05:15 Chloride 95 mmol/L (98-107) L 12/15/19 05:14 Carbon Dioxide 30 mmol/L (22-30) 12/15/19 05:14 Anion Gap 10 (5-19) 12/15/19 05:14 Est GFR ( Amer) > 60 (>60) 12/16/19 10:15 Glucose 108 mg/dL (75-110) 12/15/19 05:14 Calcium 9.0 mg/dL (8.4-10.2) 12/15/19 05:14 12/14/19 13:11 Knee - Right Gram Stain - Final 12/14/19 13:12 Knee Fluid - Right Gram Stain - Final 12/14/19 13:12 Knee - Right Gram Stain - Final 12/07 synovial fluid culture - negative Radiology: Knee X-Ray 12/14/19 14:55 IMPRESSION: Status post revision of a TKA with expected immediate postoperative findings. There is no periprosthetic fracture. PICC Line Insertion 12/15/19 00:00 IMPRESSION: SUCCESSFUL PLACEMENT OF A 5 FR DUAL LUMEN 45 CM PICC IN THE LEFT BASILIC VEIN. 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 He experienced pain, swelling. He is afebrile, HD stable, no leukocytosis. Inflammation markers elevated ESR 71 and CRP slightly elevated to 18. Synovial fluid analysis on 12/07 off antibiotics had only 206 WBC (usually >1700 with 95% PMNs), cultures were negative. There was significant inflammation on fluid analysis and fluid was noted to be turbid during the surgery. He has had the first of a 2- stage revision, cultures still remain negative. There is evidence of inflammation of the joint but not enough evidence of an infectious process. All cultures are negative. Cutibacterium acnes is one of the organisms that can take longer to grow, up to 10 days and it has been associated with PJI. Can hold cultures for 10 days to make sure this is not present. Other than that, I doubt this is a common bacterial infection as there were only 206 WBC and there weren't any antibiotics prior to the procedure to compromise the yield of the cultures. AFB cultures can be done, but less likely. This could be inflammatory/mechanical. If still concerned about possible PJI, ceftriaxone 2g IV daily can be considered until ruling out C. acnes. Six weeks of therapy from the day of the surgery will be recommended if cultures become positive. Can monitor CBC, CMP, ESR and CRP while on antibiotics. Remove PICC line at completion of therapy. Please call if questions. Tamara Barahona MD [facility] ID [id number]
[2019-12-16] MEDS: CEFTRIAXONE 2 GM/D5W RTU 2 GM/50 ML RTUPB IV SCH (18:11)
[2019-12-16] MEDS: VANCOMYCIN HCL 1,500 MG in DEXTROSE 5%-WATER 250 ML IV SCH (19:39)
[2019-12-16] MEDS: ATORVASTATIN CALCIUM 40 MG TABLET PO SCH (22:09)
[2019-12-17] MEDS: VANCOMYCIN HCL 1,500 MG in DEXTROSE 5%-WATER 250 ML IV SCH ×2 (01:55→10:31)
[2019-12-17] MEDS: HYDROCODONE/ACETAMINOPHEN 5-325 MG TABLET PO PRN ×2 (05:31→15:55)
[2019-12-17] MEDS: PANTOPRAZOLE SODIUM 40 MG TABLET.DR PO SCH (05:31)
[2019-12-17 06:24] LABS: HEMATOCRIT 30.6 % (37.9-51.0); HEMOGLOBIN 11.1 g/dL (13.5-17.0); MEAN CORPUSCULAR HEMOGLOBIN 33.1 pg (27.0-33.4); MEAN CORPUSCULAR HGB CONC 36.1 g/dL (32.0-36.0); MEAN CORPUSCULAR VOLUME 92 fl (80-97); PLATELET COUNT 352 10^3/uL (150-450); RED BLOOD COUNT 3.34 10^6/uL (4.35-5.55); RED CELL DISTRIBUTION WIDTH 13.8 % (11.5-14.0)
--- NOTE | 2019-12-17 06:54 | PDOC PROGRESS REPORT ---
Subjective Progress Note for:: 12/17/19 Reason For Visit: RIGHT KNEE INFECTED ARTHROPLASTY 44-year-old white male status post resection arthroplasty right knee on Saturday. Intraoperative cultures remain no growth so far. Discussions with [facility] infectious disease aviation consultant yesterday who recommends discontinuation of the vancomycin with possible continuation of the Rocephin. Physical Exam Vital Signs: Temp Pulse Resp BP Pulse Ox 36.8 C 95 16 118/70 96 12/16/19 23:07 12/16/19 23:07 12/16/19 23:07 12/16/19 23:07 12/16/19 23:07 Intake & Output 12/15/19 12/16/19 12/17/19 06:59 06:59 06:59 Intake Total 8979 2440 1480 Output Total 6929 2475 800 Balance 2049 Weight 90.3 kg 90.3 kg Physical Exam: Relates white male lying in hospital bed today. Patient is alert, oriented, and appropriate. Reports intermittent pain. Respiratory exam: PRESENT: unlabored Cardiovascular exam: PRESENT: RRR Vascular exam: PRESENT: normal capillary refill Extremities exam: PRESENT: other - Right lower extremity remains in a postoperative dressing. Distal neurovascular examination is intact. Results Laboratory Results: 12/17/19 05:30 12/16/19 10:15 12/16/19 12/17/19 10:15 05:30 WBC 9.0 RBC 3.34 L Hgb 11.1 L Hct 30.6 L MCV 92 MCH 33.1 MCHC 36.1 H RDW 13.8 Plt Count 352 Creatinine 0.64 Est GFR ( Amer) > 60 12/14/19 13:11 Knee - Right Gram Stain - Final 12/14/19 13:12 Knee Fluid - Right Gram Stain - Final 12/14/19 13:12 Knee - Right Gram Stain - Final Impressions: Knee X-Ray 12/14/19 14:55 IMPRESSION: Status post revision of a TKA with expected immediate postoperative findings. There is no periprosthetic fracture. PICC Line Insertion 12/15/19 00:00 IMPRESSION: SUCCESSFUL PLACEMENT OF A 5 FR DUAL LUMEN 45 CM PICC IN THE LEFT BASILIC VEIN. Status: Imported from PACS Assessment & Plan - Diagnosis (1) Infected prosthetic knee joint Is this a current diagnosis for this admission?: Yes Plan: I had a long discussion with the patient today about continued use of antibiotics. Neither he nor I is comfortable with complete cessation of the antibiotics at this point. We will discontinue the use of vancomycin and cover the patient with Rocephin per the ID recommendations. Anticipate the need for 6 weeks of IV Rocephin administration. Patient can be discharged once appropriate arrangements can be made for continuation of his IV antibiotics. - Time Time Spent with patient: 15-24 minutes Anticipated discharge: Home with Homehealth Within: within 24 hours
[2019-12-17] MEDS: LEVOTHYROXINE SODIUM 0.15 MG TABLET PO SCH (10:28)
[2019-12-17] MEDS: FERROUS SULFATE 325 MG TABLET PO SCH (10:28)
[2019-12-17] MEDS: NORMAL SALINE 10 ML SDV (SCHEDULED) IV SCH ×2 (10:28→21:11)
[2019-12-17] MEDS: PREGABALIN 75 MG CAPSULE PO SCH ×2 (10:28→17:29)
[2019-12-17] MEDS: PRENATAL VITAMIN W DHA CAPSULE PO SCH (10:28)
[2019-12-17] MEDS: ACETAMINOPHEN 325 MG TABLET PO PRN ×2 (10:28→21:10)
[2019-12-17] MEDS: SENNOSIDES/DOCUSATE 8.6-50 MG 1 EACH TABLET PO SCH ×2 (10:28→17:29)
[2019-12-17] MEDS: ASPIRIN 81 MG TABLET, ENT COATED PO SCH (10:28)
[2019-12-17] MEDS: CHOLECALCIFEROL (D3) 1,000 UNIT (25 MCG) TABLET PO SCH (10:28)
[2019-12-17] MEDS: CEFTRIAXONE 2 GM/D5W RTU 2 GM/50 ML RTUPB IV SCH (17:29)
[2019-12-17] MEDS: ATORVASTATIN CALCIUM 40 MG TABLET PO SCH (21:10)
[2019-12-18] MEDS: HYDROCODONE/ACETAMINOPHEN 5-325 MG TABLET PO PRN ×2 (00:45→09:29)
[2019-12-18] MEDS: ACETAMINOPHEN 325 MG TABLET PO PRN (05:41)
[2019-12-18] MEDS: PANTOPRAZOLE SODIUM 40 MG TABLET.DR PO SCH (05:41)
[2019-12-18] MEDS: PRENATAL VITAMIN W DHA CAPSULE PO SCH (09:29)
[2019-12-18] MEDS: CHOLECALCIFEROL (D3) 1,000 UNIT (25 MCG) TABLET PO SCH (09:29)
[2019-12-18] MEDS: LEVOTHYROXINE SODIUM 0.15 MG TABLET PO SCH (09:29)
[2019-12-18] MEDS: ASPIRIN 81 MG TABLET, ENT COATED PO SCH (09:29)
[2019-12-18] MEDS: FERROUS SULFATE 325 MG TABLET PO SCH (09:29)
[2019-12-18] MEDS: PREGABALIN 75 MG CAPSULE PO SCH (09:29)
[2019-12-18] MEDS: SENNOSIDES/DOCUSATE 8.6-50 MG 1 EACH TABLET PO SCH (09:31)
[2019-12-18] MEDS: NORMAL SALINE 10 ML SDV (SCHEDULED) IV SCH (09:32)
[2019-12-18 10:11] VITALS: BP 122/68
== END 2019-12-18 11:18 | disposition home health service (06) | DRG 468 ==
LOC: INOR 09:09 → 4S 16:49
PROVIDERS: ADMIT Orthopaedic Surgery; ATTEND Orthopaedic Surgery
PROC: 0SPC0JZ Removal of Synthetic Substitute from Right Knee Joint, Open Approach (ICD-10-PCS; 2019-12-14)
PROC: 0SRC0EZ Replacement of Right Knee Joint with Articulating Spacer, Open Approach (ICD-10-PCS; principal; 2019-12-14 11:45)
PROC: 02HV33Z Insertion of Infusion Device into Superior Vena Cava, Percutaneous Approach (ICD-10-PCS; 2019-12-15)
PROC: B518ZZA Fluoroscopy of Superior Vena Cava, Guidance (ICD-10-PCS; 2019-12-15)
PROC: B548ZZA Ultrasonography of Superior Vena Cava, Guidance (ICD-10-PCS; 2019-12-15)
DX: T84.53XA Infection and inflammatory reaction due to internal right knee prosthesis, initial encounter (principal); E03.9 Hypothyroidism, unspecified; E78.5 Hyperlipidemia, unspecified; L93.0 Discoid lupus erythematosus; J30.2 Other seasonal allergic rhinitis; I10 Essential (primary) hypertension; K21.9 Gastro-esophageal reflux disease without esophagitis; Z96.651 Presence of right artificial knee joint; Z79.899 Other long term (current) drug therapy; Z88.6 Allergy status to analgesic agent; Z91.030 Bee allergy status
CPT/HCPCS: 01402; 36415; 36573; 80048; 80202; 82565; 85027; 87070; 87075; 87205; 88304; 94799; C1713; C1776; C9290; J0131; J0171; J0690; J0696; J1642; J2250; J2270; J2405; J2704; J3010; J3370; J3475; J3490; J7030; J7060; L1830; S0119

== ENCOUNTER → 2020-01-19 | Outpatient (CLI) | payer OTHER ==
[2020-01-19 10:50] LABS: HEMATOCRIT 38.5 % (37.9-51.0); HEMOGLOBIN 13.2 g/dL (13.5-17.0); MEAN CORPUSCULAR HEMOGLOBIN 31.3 pg (27.0-33.4); MEAN CORPUSCULAR HGB CONC 34.4 g/dL (32.0-36.0); MEAN CORPUSCULAR VOLUME 91 fl (80-97); PLATELET COUNT 359 10^3/uL (150-450); RED BLOOD COUNT 4.22 10^6/uL (4.35-5.55); RED CELL DISTRIBUTION WIDTH 13.9 % (11.5-14.0); WHITE BLOOD COUNT 6.1 10^3/uL (4.0-10.5)
[2020-01-19 11:19] LABS: ALBUMIN 4.9 g/dL (3.5-5.0); ALKALINE PHOSPHATASE 113 U/L (38-126); ANION GAP 11 (5-19); ASPARTATE AMINO TRANSFERASE 31 U/L (17-59); BILIRUBIN,TOTAL 0.6 mg/dL (0.2-1.3); BLOOD UREA NITROGEN 11 mg/dL (7-20); CALCIUM 10.1 mg/dL (8.4-10.2); CARBON DIOXIDE 29 mmol/L (22-30); CHLORIDE 99 mmol/L (98-107); GLUCOSE 115 mg/dL (75-110); POTASSIUM 4.7 mmol/L (3.6-5.0); TOTAL PROTEIN 8.9 g/dL (6.3-8.2)
[2020-01-19 11:27] LABS: ERYTHROCYTE SEDIMENTATION RATE 44 mm/hr (0-15)
== END ==
LOC: OD 09:59
PROVIDERS: ATTEND Orthopaedic Surgery
DX: M25.561 Pain in right knee (principal)
CPT/HCPCS: 36415; 80053; 85027; 85652; 86140

== ENCOUNTER 2020-02-08 08:17 | Inpatient (IN) | payer OTHER ==
[2020-02-01 11:54] LABS: ABSOLUTE BASOPHILS # (AUTO) 0.1 10^3/uL (0.0-0.2); ABSOLUTE EOSINOPHILS # (AUTO) 0.1 10^3/uL (0.0-0.6); ABSOLUTE LYMPHOCYTES (AUTO) 2.6 10^3/uL (0.5-4.7); ABSOLUTE MONOCYTES (AUTO) 0.5 10^3/uL (0.1-1.4); ABSOLUTE NEUT (AUTO) 3.2 10^3/uL (1.7-8.2); EOSINOPHILS % (AUTO) 2.2 % (0-6); HEMATOCRIT 38.9 % (37.9-51.0); HEMOGLOBIN 13.5 g/dL (13.5-17.0); LYMPHOCYTES % (AUTO) 39.5 % (13-45); MEAN CORPUSCULAR HEMOGLOBIN 30.9 pg (27.0-33.4); MEAN CORPUSCULAR HGB CONC 34.6 g/dL (32.0-36.0); MEAN CORPUSCULAR VOLUME 89 fl (80-97); MONOCYTES % (AUTO) 8.2 % (3-13); PLATELET COUNT 355 10^3/uL (150-450); RED BLOOD COUNT 4.37 10^6/uL (4.35-5.55); RED CELL DISTRIBUTION WIDTH 13.7 % (11.5-14.0); SEGMENTED NEUTROPHILS % (AUTO) 49.1 % (42-78); TOTAL CELLS COUNTED % (AUTO) 100 %; WHITE BLOOD COUNT 6.5 10^3/uL (4.0-10.5)
[2020-02-01 11:56] LABS: APPEARANCE,URINE CLEAR; BILIRUBIN,URINE NEGATIVE (NEGATIVE); COLOR,URINE YELLOW; GLUCOSE, URINE NEGATIVE (NEGATIVE); KETONES,URINE NEGATIVE (NEGATIVE); LEUKOCYTE ESTERASE,URINE NEGATIVE (NEGATIVE); NITRITE,URINE NEGATIVE (NEGATIVE); PROTEIN,URINE NEGATIVE (NEGATIVE); URINE SPECIFIC GRAVITY 1.021; UROBILINOGEN,URINE NEGATIVE mg/dL (<2.0)
--- NOTE | 2020-02-01 11:57 | RADIOLOGY REPORT (SQ) ---
EXAM DESCRIPTION: CHEST PA/LATERAL IMAGES COMPLETED DATE/TIME: 02/01/2020 11:48 am REASON FOR STUDY: PRE-OP COMPARISON: None. EXAM PARAMETERS: NUMBER OF VIEWS: two views TECHNIQUE: Digital Frontal and Lateral radiographic views of the chest acquired. RADIATION DOSE: NA LIMITATIONS: none FINDINGS: LUNGS AND PLEURA: No opacities, masses or pneumothorax. No pleural effusion. MEDIASTINUM AND HILAR STRUCTURES: No masses or contour abnormalities. HEART AND VASCULAR STRUCTURES: Heart normal size. No evidence for failure. BONES: No acute findings. HARDWARE: None in the chest. OTHER: No other significant finding. IMPRESSION: NO SIGNIFICANT RADIOGRAPHIC FINDING IN THE CHEST. TECHNICAL DOCUMENTATION: JOB ID: [id number] 2010 [employer]- All Rights Reserved Reading location - IP/workstation name: [email or web address]
--- NOTE | 2020-02-01 11:58 | EKG REPORT ---
SEVERITY:- BORDERLINE ECG - SINUS RHYTHM BORDERLINE T ABNORMALITIES, ANT-LAT LEADS : Confirmed by: Maxime Dickens MD 01-Feb-2020 11:58:01
[2020-02-01 12:18] LABS: ANION GAP 10 (5-19); BLOOD UREA NITROGEN 18 mg/dL (7-20); CALCIUM 9.9 mg/dL (8.4-10.2); CARBON DIOXIDE 27 mmol/L (22-30); CHLORIDE 101 mmol/L (98-107); GLUCOSE 99 mg/dL (75-110); POTASSIUM 4.8 mmol/L (3.6-5.0)
[~2020-02-08 08:17] MED LIST changes: +BUPIVACAINE INJ/PF LIPOSOME/PF 266 MG/20 ML SDV INJ PRN; +CEFAZOLIN INJ 1 GM VIAL IV PRN; -CEFAZOLIN SODIUM 2 GM in DEXTROSE 5%-WATER 100 ML IV PRN; +DEXAMETHASONE SOD PHOSPHATE INJ 4 MG/1 ML VIAL ONE; +FENTANYL CITRATE INJ/PF 100 MCG/2 ML AMPUL ONE; +IBUPROFEN 800 MG in NORMAL SALINE 250 ML IV PRN; +LACTATED RINGERS 1000 ML IV PRN; +LIDOCAINE 0.5% INJ-PF (5 MG/ML) 50 ML SDV SUBCUT PRN; +MIDAZOLAM 2 MG/2 ML INJ ONE; +ONDANSETRON HCL INJ/PF 4 MG/2 ML SDV ONE; +OXYCODONE HCL SR 10 MG TABLET PO PRN; +PANTOPRAZOLE SODIUM 20 MG TABLET.DR PO PRN; +PROPOFOL INJ 200 MG/20 ML VIAL IV ONE; +TRANEXAMIC ACID INJ/PF 1,000 MG/10 ML SDV ONE; +VANCOMYCIN HCL 1,000 MG in DEXTROSE 5%-WATER 250 ML IV PRN
[2020-02-08] MEDS ORDERED: OXYCODONE HCL SR 10 MG TABLET PO ONE (08:37)
[2020-02-08] MEDS ORDERED: PANTOPRAZOLE SODIUM 20 MG TABLET.DR PO ONE (08:38)
[2020-02-08] MEDS ORDERED: CEFAZOLIN INJ 1 GM VIAL ONE (08:38)
[2020-02-08] MEDS ORDERED: EPINEPHRINE INJ/PF 1 MG/1 ML AMPULE ONE (09:25)
[2020-02-08] MEDS ORDERED: VANCOMYCIN HCL INJ 1000 MG VIAL ONE (10:05)
[2020-02-08] MEDS ORDERED: ONDANSETRON HCL INJ/PF 4 MG/2 ML SDV IV PRN ×2 (11:28→12:00)
[2020-02-08] MEDS ORDERED: PROMETHAZINE HCL INJ 25 MG/1 ML VIAL IV PRN ×2 (11:28)
[2020-02-08] MEDS ORDERED: DIPHENHYDRAMINE HCL 50 MG/ML VIAL IV PRN ×2 (11:28→12:00)
[2020-02-08] MEDS ORDERED: MORPHINE SULFATE 10 MG/ML INJ IV PRN (11:28)
[2020-02-08] MEDS ORDERED: FENTANYL CITRATE INJ/PF 100 MCG/2 ML AMPUL IV PRN ×2 (11:28)
[2020-02-08] MEDS ORDERED: MEPERIDINE HCL/PF INJ 25 MG/1 ML DISP.SYRIN IV PRN (11:28)
--- NOTE | 2020-02-08 11:59 | Operative Report ---
Operative Report DATE OF SURGERY: 02/08/20 PREOPERATIVE DIAGNOSIS: Right knee periprosthetic infection OPERATION: Revision right knee arthroplasty SURGEON: HIRA ROJAS ANESTHESIA: Spinal TISSUE REMOVED OR ALTERED: Cultures to microbiology. Implants to pathology ESTIMATED BLOOD LOSS: 75 PROCEDURE: Implants used: Femur: Jeny triathlon size 6 PS femur Tibia: 5 universal baseplate with 50 mm extension Tibial liner: 13 mm PS insert Patella: 40 mm oval patella Procedure with the patient supine on the operating table the right the limb is prepped and draped in a sterile fashion. The limb was elevated for exsanguination and the tourniquet inflated to 280 torr. A standard midline median parapatellar approach the knee is taken on with the previous surgical approach. Upon entering the capsule cultures were sent for culture and sensitivity. The existing osteo-remedies cement spacers were removed piecemeal and the wound is copiously with pulse lavage to identify any further cement that remains.. Access is gained to the femoral canal through the intercondylar notch. Intramedullary alignment instrumentation used to fresh the femoral cuts to accommodate a size 6 PS implant.. A trial reduction femurs performed and this is judged to be adequate. Attention was next turned to the tibia. Using an true medullary alignment system proximal tibial cut is refreshed.. This is sized to a size 5 tibia. A trial reduction was now performed with a 6 femur and a 5 tibia using a 13 millimeters spacer. It is full extension and central patellofemoral tracking. The articular surface the patella was next resected using an oscillating saw. All trial implants were removed. Polymethylmethacrylate is mixed and used to cement the above implants in place. On adequate curing the cement excess cement was removed the tourniquet was deflated hemostasis obtained the wound is then closed in layers using interrupted Vicryl followed by ap. A sterile compressive dressing was applied and the patient returned to recovery room in satisfactory condition.
[2020-02-08] MEDS ORDERED: MAG HYDROX/AL HYDROX/SIMETH SUSP 30 ML UDCUP PO PRN (12:00)
[2020-02-08] MEDS ORDERED: ONDANSETRON 4 MG TAB.RAPDIS PO PRN (12:00)
[2020-02-08] MEDS ORDERED: RINGERS SOLUTION,LACTATED 1,000 ML IV PRN (12:00)
[2020-02-08] MEDS ORDERED: TRANEXAMIC ACID INJ/PF 1,000 MG/10 ML SDV IV ONE (12:00)
[2020-02-08] MEDS ORDERED: ACETAMINOPHEN 325 MG TABLET PO PRN (12:00)
[2020-02-08] MEDS ORDERED: ZOLPIDEM TARTRATE 5 MG TABLET PO PRN (12:00)
[2020-02-08] MEDS ORDERED: OXYCODONE HCL IR 5 MG TABLET PO PRN (12:00)
[2020-02-08] MEDS ORDERED: PROMETHAZINE HCL INJ 25 MG/1 ML VIAL ONE (12:37)
[2020-02-08] MEDS ORDERED: PROPOFOL INJ 200 MG/20 ML VIAL IV ONE (12:45)
--- NOTE | 2020-02-08 13:00 | RADIOLOGY REPORT (SQ) ---
EXAM DESCRIPTION: KNEE RIGHT 2 VIEWS IMAGES COMPLETED DATE/TIME: 02/08/2020 12:51 pm REASON FOR STUDY: Post OP -Long Cassette in PACU M25.561 PAIN IN RIGHT KNEE T84.59XA INFECT/INFLM REACTION DUE TO OTH INTERNAL JOINT PRO COMPARISON: None. NUMBER OF VIEWS: Two views. TECHNIQUE: AP and lateral radiographic images acquired of the right knee. LIMITATIONS: None. FINDINGS: Postoperative images show a right knee arthroplasty in good position. IMPRESSION: Right knee arthroplasty. Refer to operative note for further information. TECHNICAL DOCUMENTATION: JOB ID: [id number] 2010 [employer]- All Rights Reserved Reading location - IP/workstation name: [email or web address]
[2020-02-08] MEDS ORDERED: BUPIVACAINE HCL 0.25 % INJ/PF (2.5 MG/1 ML) 30 ML VIAL ONE (13:22)
[2020-02-08] MEDS ORDERED: IBUPROFEN 800 MG in NORMAL SALINE 250 ML IV SCH (14:00)
[2020-02-08] MEDS: ASPIRIN 81 MG TABLET, ENT COATED PO SCH (14:15)
[2020-02-08] MEDS: IBUPROFEN 800 MG in NORMAL SALINE 250 ML IV SCH (17:25)
[2020-02-08] MEDS: SENNOSIDES/DOCUSATE 8.6-50 MG 1 EACH TABLET PO SCH (17:25)
[2020-02-08] MEDS: OXYCODONE HCL SR 10 MG TABLET PO SCH (21:46)
[2020-02-08] MEDS ORDERED: ATORVASTATIN CALCIUM 40 MG TABLET PO SCH (22:00)
[2020-02-09] MEDS ORDERED: VANCOMYCIN HCL 1,000 MG in DEXTROSE 5%-WATER 250 ML IV ONE ×2
[2020-02-09] MEDS: IBUPROFEN 800 MG in NORMAL SALINE 250 ML IV SCH ×2 (05:49→11:29)
[2020-02-09] MEDS ORDERED: PANTOPRAZOLE SODIUM 40 MG TABLET.DR PO SCH (06:00)
[2020-02-09 06:41] LABS: HEMATOCRIT 29.7 % (37.9-51.0); HEMOGLOBIN 10.5 g/dL (13.5-17.0); MEAN CORPUSCULAR HEMOGLOBIN 31.3 pg (27.0-33.4); MEAN CORPUSCULAR HGB CONC 35.4 g/dL (32.0-36.0); MEAN CORPUSCULAR VOLUME 89 fl (80-97); PLATELET COUNT 248 10^3/uL (150-450); RED BLOOD COUNT 3.35 10^6/uL (4.35-5.55); WHITE BLOOD COUNT 10.3 10^3/uL (4.0-10.5)
--- NOTE | 2020-02-09 06:52 | PDOC DISCHARGE SUMMARY ---
Impression - Admit/DC Date/PCP Admission Date/Primary Care Provider: 02/08/20 08:[facility] Discharge Date: 02/09/20 - Discharge Diagnosis (1) Infected prosthetic knee joint Is this a current diagnosis for this admission?: Yes - Additional Information Resuscitation Status: Full Code Discharge Diet: Regular Discharge Activity: Balance Activity w/Rest, No tub bath Referrals: HIRA ROJAS MD [ACTIVE STAFF] - 02/23/20 10:00 am Home Medications: Cholecalciferol (Vitamin D3) [Vitamin D3 1000 Unit Tablet] 2,000 unit PO DAILY 12/09/19 Etodolac 300 mg PO DAILYP PRN 12/09/19 Ferrous Sulfate [Ferosul] 325 mg PO DAILY 12/09/19 Loratadine [Claritin] 10 mg PO DAILY 12/09/19 Multivitamin 1 each PO DAILY 12/09/19 [place]-3/Dha/Epa/Fish Oil [Fish Oil 1,000 mg Softgel] 1 each PO DAILY 12/09/19 Atorvastatin Calcium [Lipitor 40 mg Tablet] 40 mg PO QHS 12/14/19 Diclofenac Sodium 4 gm TP QIDP PRN 12/14/19 Levothyroxine Sodium [Synthroid 0.15 mg Tablet] 0.15 mg PO Q6AM 02/08/20 History of Present Illiness History of Present Illness: CHERY PALOMO is a 44 year old male Patient is a 44-year-old white male status post right knee arthroplasty in 2014 with a subsequent postoperative periprosthetic infection. Patient status post resection arthroplasty with implantation of cement spacer. He is now admitted for removal of cement spacer and ultimate knee reconstruction. Hospital Course Hospital Course: Patient is admitted through the operating where he undergoes uncomplicated revision right knee arthroplasty. He is returned to the floor in satisfactory condition. Makes adequate progress with physical therapy to enable him to return home today with home health services and DME. Physical Exam Vital Signs: Temp Pulse Resp BP Pulse Ox 36.5 C 75 16 105/61 96 02/08/20 23:35 02/08/20 23:35 02/08/20 23:35 02/08/20 23:35 02/08/20 23:35 Intake & Output 02/07/20 02/08/20 02/09/20 06:59 06:59 06:59 Intake Total 2871 Output Total 2425 Balance 446 Weight 100 kg General appearance: PRESENT: no acute distress, mild distress Head exam: PRESENT: normocephalic Respiratory exam: PRESENT: unlabored Cardiovascular exam: PRESENT: RRR Pulses: PRESENT: +1 pedal pulses bilateral Vascular exam: PRESENT: normal capillary refill Musculoskeletal exam: PRESENT: other - Knee compressive dressing removed. Underlying OpSite dressing is clean dry and intact. Minimal pedal edema. Distal neurovascular septations intact. Results Laboratory Results: WBC 10.3 10^3/uL (4.0-10.5) 02/09/20 05:54 RBC 3.35 10^6/uL (4.35-5.55) L 02/09/20 05:54 Hgb 10.5 g/dL (13.5-17.0) L 02/09/20 05:54 Hct 29.7 % (37.9-51.0) L 02/09/20 05:54 MCV 89 fl (80-97) 02/09/20 05:54 MCH 31.3 pg (27.0-33.4) 02/09/20 05:54 MCHC 35.4 g/dL (32.0-36.0) 02/09/20 05:54 RDW 14.0 % (11.5-14.0) 02/09/20 05:54 Plt Count 248 10^3/uL (150-450) 02/09/20 05:54 Lymph % (Auto) 39.5 % (13-45) 02/01/20 11:11 [place] % (Auto) 8.2 % (3-13) 02/01/20 11:11 Eos % (Auto) 2.2 % (0-6) 02/01/20 11:11 Baso % (Auto) 1.0 % (0-2) 02/01/20 11:11 Absolute Neuts (auto) 3.2 10^3/uL (1.7-8.2) 02/01/20 11:11 Absolute Lymphs (auto) 2.6 10^3/uL (0.5-4.7) 02/01/20 11:11 Absolute Monos (auto) 0.5 10^3/uL (0.1-1.4) 02/01/20 11:11 Absolute Eos (auto) 0.1 10^3/uL (0.0-0.6) 02/01/20 11:11 Absolute Basos (auto) 0.1 10^3/uL (0.0-0.2) 02/01/20 11:11 Seg Neutrophils % 49.1 % (42-78) 02/01/20 11:11 Sodium 138.1 mmol/L (137-145) 02/01/20 11:11 Potassium 4.8 mmol/L (3.6-5.0) 02/01/20 11:11 Chloride 101 mmol/L (98-107) 02/01/20 11:11 Carbon Dioxide 27 mmol/L (22-30) 02/01/20 11:11 Anion Gap 10 (5-19) 02/01/20 11:11 BUN 18 mg/dL (7-20) 02/01/20 11:11 Creatinine 0.66 mg/dL (0.52-1.25) 02/01/20 11:11 Est GFR ( Amer) > 60 (>60) 02/01/20 11:11 Est GFR (MDRD) Non-Af > 60 (>60) 02/01/20 11:11 Glucose 99 mg/dL (75-110) 02/01/20 11:11 Calcium 9.9 mg/dL (8.4-10.2) 02/01/20 11:11 Urine Color YELLOW 02/01/20 11:20 Urine Appearance CLEAR 02/01/20 11:20 Urine pH 5.0 (5.0-9.0) 02/01/20 11:20 Ur Specific [place] 1.021 02/01/20 11:20 Urine Protein NEGATIVE mg/dL (NEGATIVE) 02/01/20 11:20 Urine Glucose (UA) NEGATIVE mg/dL (NEGATIVE) 02/01/20 11:20 Urine Ketones NEGATIVE mg/dL (NEGATIVE) 02/01/20 11:20 Urine Blood NEGATIVE (NEGATIVE) 02/01/20 11:20 Urine Nitrite NEGATIVE (NEGATIVE) 02/01/20 11:20 Urine Bilirubin NEGATIVE (NEGATIVE) 02/01/20 11:20 Urine Urobilinogen NEGATIVE mg/dL (<2.0) 02/01/20 11:20 Ur Leukocyte Esterase NEGATIVE (NEGATIVE) 02/01/20 11:20 Urine WBC (Auto) 0 /HPF 02/01/20 11:20 Urine RBC (Auto) 0 /HPF 02/01/20 11:20 Urine Mucus (Auto) RARE /LPF 02/01/20 11:20 Urine Ascorbic Acid NEGATIVE (NEGATIVE) 02/01/20 11:20 COVID-19 Source NASOPHARYNGEAL 02/01/20 11:05 COVID-19 (ZURI) NOT DETECTED 02/01/20 11:05 Blood Type O POSITIVE 02/08/20 08:55 Antibody Screen NEGATIVE 02/08/20 08:55 Impressions: Chest X-Ray 02/01/20 00:00 IMPRESSION: NO SIGNIFICANT RADIOGRAPHIC FINDING IN THE CHEST. Knee X-Ray 02/08/20 12:01 IMPRESSION: Right knee arthroplasty. Refer to operative note for further information. Plan Plan of Treatment: Patient to be discharged home on a weightbearing as tolerated basis with home health services and DME. Follow-up with Dr. Rojas and [facility] for surgery in 2 weeks for staple removal. Stroke Is this a Stroke Patient?: No Stroke Pt being discharged on Anti-thrombolytic therapy?: Yes Acute Heart Failure - Is this a Heart Failure Patient?: No
[2020-02-09 07:05] LABS: ANION GAP 8 (5-19); BLOOD UREA NITROGEN 13 mg/dL (7-20); CALCIUM 9.2 mg/dL (8.4-10.2); CARBON DIOXIDE 28 mmol/L (22-30); CHLORIDE 102 mmol/L (98-107); GLUCOSE 102 mg/dL (75-110); POTASSIUM 4.6 mmol/L (3.6-5.0)
[2020-02-09 08:06] VITALS: BP 106/53
[2020-02-09] MEDS ORDERED: PRENATAL VITAMIN W DHA CAPSULE PO SCH (10:00)
[2020-02-09] MEDS ORDERED: FERROUS SULFATE 325 MG TABLET PO SCH (10:00)
[2020-02-09] MEDS ORDERED: LEVOTHYROXINE SODIUM 0.15 MG TABLET PO SCH (10:00)
[2020-02-09] MEDS: OXYCODONE HCL SR 10 MG TABLET PO SCH (11:27)
[2020-02-09] MEDS: SENNOSIDES/DOCUSATE 8.6-50 MG 1 EACH TABLET PO SCH (11:28)
[2020-02-09] MEDS: ASPIRIN 81 MG TABLET, ENT COATED PO SCH (11:28)
== END 2020-02-09 12:39 | disposition home health service (06) | DRG 468 ==
LOC: INOR 08:17 → 4S 13:49
PROVIDERS: ADMIT Orthopaedic Surgery; ATTEND Orthopaedic Surgery
PROC: 0SRC0J9 Replacement of Right Knee Joint with Synthetic Substitute, Cemented, Open Approach (ICD-10-PCS; 2020-02-08)
PROC: 0SPC0JZ Removal of Synthetic Substitute from Right Knee Joint, Open Approach (ICD-10-PCS; principal; 2020-02-08 10:30)
DX: T84.53XA Infection and inflammatory reaction due to internal right knee prosthesis, initial encounter (principal); Y83.1 Surgical operation with implant of artificial internal device as the cause of abnormal reaction of the patient, or of later complication, without mention of misadventure at the time of the procedure; Z03.818 Encounter for observation for suspected exposure to other biological agents ruled out; Z79.899 Other long term (current) drug therapy; Z79.890 Hormone replacement therapy
CPT/HCPCS: 01402; 36415; 71046; 80048; 81001; 85025; 85027; 86850; 86900; 86901; 87070; 87075; 87205; 87635; 93005; 93010; 94799; C9803; J0171; J0690; J1100; J1741; J2250; J2405; J2550; J2704; J3010; J3370; J3490; J7050; J7060; J7120

== ENCOUNTER → 2020-08-04 | Outpatient (CLI) | payer OTHER ==
[2020-08-04 14:53] LABS: HEMATOCRIT 39.5 % (37.9-51.0); HEMOGLOBIN 13.7 g/dL (13.5-17.0); MEAN CORPUSCULAR HEMOGLOBIN 32.1 pg (27.0-33.4); MEAN CORPUSCULAR HGB CONC 34.7 g/dL (32.0-36.0); MEAN CORPUSCULAR VOLUME 92 fl (80-97); PLATELET COUNT 334 10^3/uL (150-450); RED BLOOD COUNT 4.28 10^6/uL (4.35-5.55); WHITE BLOOD COUNT 6.2 10^3/uL (4.0-10.5)
[2020-08-04 15:35] LABS: ERYTHROCYTE SEDIMENTATION RATE 15 mm/hr (0-15)
== END ==
LOC: OD 14:02
PROVIDERS: ATTEND Family Medicine
DX: T84.59XS Infection and inflammatory reaction due to other internal joint prosthesis, sequela (principal)
CPT/HCPCS: 36415; 85027; 85652; 86140

== ENCOUNTER → 2020-08-16 | Outpatient (CLI) | payer OTHER ==
--- NOTE | 2020-08-16 16:12 | RADIOLOGY REPORT (SQ) ---
EXAM DESCRIPTION: NM 3 PHASE BONE SCAN IMAGES COMPLETED DATE/TIME: 08/16/2020 1:31 pm REASON FOR STUDY: (T84.59XS)INFECT/INFLM REACTION DUE TO OTH INT JOINT PROSTH,RKNEE T84.59XS INFECT /INFLM REACTION DUE TO OTH INT JOINT PROSTH, COMPARISON: Plain films 06/07/2020. RADIONUCLIDE AND DOSE: 19.7 millicuries Tc99m MDP. The route of agent administration: Intravenous. ADDITIONAL DRUGS AND DOSES: None. TECHNIQUE: Following injection of the radiopharmaceutical, serial blood flow images acquired. Equil ibrium blood pool images then acquired. Routine delayed images at 3 hour acquired of the areas of cl inical concern with additional focused images as needed. AREA OF INTEREST: Right knee arthroplasty. LIMITATIONS: None. FINDINGS: VASCULAR FLOW IMAGES: Hyperemia right knee. BLOOD POOL IMAGES: Increased uptake adjacent to the right knee prosthesis. BONES: Increased uptake adjacent to right knee arthroplasty. KIDNEYS: Kidneys not imaged. OTHER: No other significant finding. IMPRESSION: Positive 3 phase bone scan worrisome for loosening or infection. COMMENT: Quality measure 147: Current bone scan is compared with any available plain radiographs, p rior bone scans, and CT/MRI. TECHNICAL DOCUMENTATION: JOB ID: [id number] 2010 [employer]- All Rights Reserved Reading location - IP/workstation name: [email or web address]
== END ==
LOC: RAD 09:52
PROVIDERS: ATTEND Family Medicine
DX: T84.59XS Infection and inflammatory reaction due to other internal joint prosthesis, sequela (principal); X58.XXXS Exposure to other specified factors, sequela
CPT/HCPCS: 78315; A9503; Q9969